=== PATIENT | male | born 1975 | race Asian ===

== ENCOUNTER 2018-11-13 14:49 | Emergency (ER) | payer OTHER, SELFPAY ==
[~2018-11-13] VITALS: Ht 167.6 cm; Wt 75.0 kg
[2018-11-13 15:02] VITALS: BP 148/101
[2018-11-13] MEDS ORDERED: FAMOTIDINE 20 MG TABLET ONE (15:26)
[2018-11-13] MEDS ORDERED: FAMOTIDINE 20 MG TABLET PO ONE (15:30)
== END 2018-11-13 15:34 | disposition home or self-care (01) ==
LOC: ED 15:15
DX: R21 Rash and other nonspecific skin eruption (principal); T49.8X5A Adverse effect of other topical agents, initial encounter; Y92.89 Other specified places as the place of occurrence of the external cause
CPT/HCPCS: 99283; J7512

== ENCOUNTER 2019-08-26 20:22 | Emergency (ER) | payer OTHER ==
[~2019-08-26] VITALS: Ht 167.6 cm; Wt 76.4 kg
[2019-08-26 20:29] VITALS: BP 180/116
[2019-08-26] MEDS ORDERED: LIDOCAINE-MPF 1%, 5ML INFIL ONE (22:00)
[2019-08-26] MEDS ORDERED: DIPH,PERTUSS(ACELL),TET VAC/PF 0.5 ML IM-VACC ONE ×2 (22:00→22:06)
[2019-08-26] MEDS ORDERED: LIDOCAINE-MPF 1%, 5ML ONE (22:06)
--- NOTE | 2019-08-26 23:15 | NUR ---
Patient/Caregiver given discharge instructions and they have confirmed that they understand the instructions. Patient ambulatory with steady gait.
== END 2019-08-26 23:32 | disposition home or self-care (01) ==
LOC: ED 23:05
DX: S61.012A Laceration without foreign body of left thumb without damage to nail, initial encounter (principal); J45.909 Unspecified asthma, uncomplicated; I10 Essential (primary) hypertension; Z88.0 Allergy status to penicillin; X58.XXXA Exposure to other specified factors, initial encounter; Y93.89 Activity, other specified; Y92.009 Unspecified place in unspecified non-institutional (private) residence as the place of occurrence of the external cause; Y99.8 Other external cause status
CPT/HCPCS: 12041; 99285

== ENCOUNTER 2020-06-24 19:05 | Emergency (ER) | payer OTHER ==
[~2020-06-24] VITALS: Ht 165.1 cm; Wt 73.8 kg
--- NOTE | 2020-06-24 19:54 | NUR ---
PT CAME IN TODAY FOR DENTAL PAIN, STATES HE WAS SUPPOSED TO HAVE A TOOTH PULLED TWO WEEKS AGO BUT COULDNT GET THE DAY OFF WORK. PT STATES THE PAIN CAME BACK "REALLY BAD" TODAY AND HE NOW HAS A BUMP THERE. NO VISION CHANGES OR TRAUMA. NAD, VSS, WCTM. PT RESTING ON GURNEY, APPEARS COMFORTBALE, DENIES ADDITIONAL NEEDS AT THIS TIME, GIVEN CALL LIGHT AND WARM BLANKET FOR COMFORT. PLACED ON SPO2/BP MONITORING. WAITING FOR ERP EVAL
[2020-06-24] MEDS ORDERED: LIDOCAINE-MPF 1%, 5ML ONE (20:27)
[2020-06-24] MEDS ORDERED: LIDOCAINE 1%, 10ML INFIL ONE (20:30)
--- NOTE | 2020-06-24 20:31 | NUR ---
PT MEDICATED PER [facility] FOR PAIN. PT STATES HE DOESNT KNOW ABOUT GETTING NUMBED FOR ANYTHIGN AND IS NERVOUS. PT IS NAD, VSS, NO CHANGE IN CONDITION, WCTM.
[2020-06-24 21:23] VITALS: BP 153/92
--- NOTE | 2020-06-24 21:24 | NUR ---
Patient given discharge instructions and they have confirmed that they understand the instructions. Patient ambulatory with steady gait. NAD, DENIES ADDITIONAL NEEDS OR QUESTIONS. NO BELONGINGS LEFT IN ROOM AT [place].
== END 2020-06-24 21:26 | disposition home or self-care (01) ==
LOC: ED 21:00
DX: K04.7 Periapical abscess without sinus (principal); K02.9 Dental caries, unspecified
CPT/HCPCS: 99283